=== PATIENT | male | born 2000 | race Caucasian/White ===

== ENCOUNTER 2021-07-04 21:37 | Emergency (ER) | payer BC, MEDICAID ==
[~2021-07-04] VITALS: Ht 167.6 cm; Wt 59.1 kg
[2021-07-04] MEDS ORDERED: morphine 4 MG/ML inj SYRINge IV ONE ×2 (21:55→23:40)
[2021-07-04] MEDS ORDERED: NORMAL SALINE IV ONE ×4 (22:00→22:45)
[2021-07-04] MEDS ORDERED: bacitracin 15gm ointment TP ONE (22:00)
[2021-07-04] MEDS ORDERED: TETanus/Pertussis (Acell)/Diphther VAC/PF (Tdap-Adult) 0.5ml syringe IMVAC ONE (22:00)
[2021-07-04] MEDS ORDERED: KETAMINE IV ONE ×4 (22:00→22:45)
[2021-07-04] MEDS ORDERED: HYDROmorphone 1 mg/ml syringe IV ONE (22:10)
--- NOTE | 2021-07-04 22:32 | NUR ---
KADIE Wilburn called for consult. Recommend discharge home with close follow up Tuesday.
[2021-07-04] MEDS ORDERED: ketorolac trometh. 30mg/ml inj. IV ONE (22:45)
[2021-07-04] MEDS ORDERED: ondansetron/PF 4mg/2ml inj IV ONE (22:45)
[2021-07-04] MEDS ORDERED: HYDROcodone/acetaminophen 5mg/325mg tablet PO ONE (22:45)
--- NOTE | 2021-07-05 00:02 | NUR ---
PIV site c/d/i s complication or adverse. IV med infusing well without complication. Pt laying supine, bed in lowest position, wheels locked, rail 2/2 up, call ford in reach. Family at bedside. Pt bandages clean dry intact.
[2021-07-05] MEDS ORDERED: HYDROcodone/acetaminophen 10/325mg tab PO ONE (00:35)
[2021-07-05] MEDS ORDERED: HYDR-3965 PO (00:37)
[2021-07-05] MEDS ORDERED: BACI28.42 TOP (00:37)
[2021-07-05] MEDS ORDERED: IBUP-1984 PO (00:37)
[2021-07-05 01:52] VITALS: BP 128/76
== END 2021-07-05 01:54 | disposition home or self-care (01) ==
LOC: ER 21:38
DX: T20.20XA Burn of second degree of head, face, and neck, unspecified site, initial encounter (principal); T20.27XA Burn of second degree of neck, initial encounter; T31.11 Burns involving 10-19% of body surface with 10-19% third degree burns; Z20.3 Contact with and (suspected) exposure to rabies; X08.8XXA Exposure to other specified smoke, fire and flames, initial encounter; Y93.89 Activity, other specified; Y92.89 Other specified places as the place of occurrence of the external cause; Y99.8 Other external cause status
CPT/HCPCS: 16020; 90471; 90715; 96374; 96375; 96376; 99284; J1170; J1885; J2270; J2405; J3490